=== PATIENT | male | born 1955 | race Caucasian/White ===

== ENCOUNTER 2017-11-21 14:24 | Emergency (ER) | payer MEDICAID, OTHER, SELFPAY ==
[~2017-11-21] VITALS: Ht 180.3 cm; Wt 75.8 kg
[2017-11-21 14:25] VITALS: BP 156/92
[2017-11-21] MEDS ORDERED: LIDOCAINE 1%, 20ML SQ ONE (15:30)
[2017-11-21] MEDS ORDERED: BUPIVACAINE 0.25% ONE (15:49)
[2017-11-21] MEDS ORDERED: LIDOCAINE 1%, 20ML ONE (15:49)
[2017-11-21] MEDS ORDERED: BUPIVACAINE/PF-EPI 0.25% 1:200K SQ ONE (16:00)
== END 2017-11-21 16:18 | disposition home or self-care (01) ==
LOC: ED 15:00
DX: M70.71 Other bursitis of hip, right hip (principal)
CPT/HCPCS: 99284

== ENCOUNTER 2017-11-27 16:38 | Emergency (ER) | payer MEDICAID ==
[~2017-11-27] VITALS: Ht 177.8 cm; Wt 77.0 kg
[2017-11-27 16:57] VITALS: BP 170/110
[2017-11-27] MEDS ORDERED: PINK LADY ENEMA 1,000 ML PR ONE (18:00)
[2017-11-27 18:21] LABS: BASOPHILS # (AUTO) 0.04 x10^3/uL (0-0.1); BASOPHILS % (AUTO) 0 % (0-1); EOSINOPHILS # (AUTO) 0.07 x10^3/uL (0-0.4); EOSINOPHILS % (AUTO) 1 % (1-7); LYMPHOCYTES # (AUTO) 2.07 x10^3/uL (1-3.4); LYMPHOCYTES % (AUTO) 23 % (22-44); MD NO; MEAN CORPUSCULAR HEMOGLOBIN 34.6 pg (27.5-34.5); MEAN CORPUSCULAR HGB CONC 33.8 g/dL (33.2-36.2); MEAN CORPUSCULAR VOLUME 102.5 fL (81-97); MEAN PLATELET VOLUME 8.5 fL (7.4-10.4); MONOCYTES # (AUTO) 0.73 x10^3/uL (0.2-0.8); MONOCYTES % (AUTO) 8 % (2-9); NEUTROPHILS # (AUTO) 6.18 x10^3/uL (1.8-6.8); NEUTROPHILS % (AUTO) 68 % (42-75); PLATELET COUNT 204 x10^3/uL (130-400); RED BLOOD COUNT 4.81 x10^6/uL (4.38-5.82); RED CELL DISTRIBUTION WIDTH 13.6 % (9.4-14.8)
[2017-11-27 18:33] LABS: ALANINE AMINOTRANSFERASE 48 U/L (12-78); ALBUMIN 3.2 g/dL (3.4-5.0); ANION GAP 8 mmol/L (5-15); CALCIUM 8.5 mg/dL (8.5-10.1); CHLORIDE 104 mmol/L (98-107); CREATININE 0.95 mg/dL (0.7-1.3)
[2017-11-27 18:35] LABS: ALKALINE PHOSPHATASE 137 U/L (45-117); BILIRUBIN,TOTAL 0.8 mg/dL (0.2-1.0)
[2017-11-27] MEDS ORDERED: MAGNESIUM CITRATE 300ML ORAL SOL ONE (20:59)
[2017-11-27] MEDS ORDERED: MAGNESIUM CITRATE 300ML ORAL SOL PO ONE (21:00)
== END 2017-11-27 21:28 | disposition home or self-care (01) ==
LOC: ED 19:46
DX: K59.00 Constipation, unspecified (principal); R11.0 Nausea; I10 Essential (primary) hypertension; E78.5 Hyperlipidemia, unspecified; F17.200 Nicotine dependence, unspecified, uncomplicated
CPT/HCPCS: 36415; 74022; 80053; 83690; 85025; 93005; 99285

== ENCOUNTER 2018-06-07 09:08 | Emergency (ER) | payer MEDICAID ==
[~2018-06-07] VITALS: Ht 180.3 cm; Wt 71.4 kg
[2018-06-07 09:27] VITALS: BP 161/107
[2018-06-07] MEDS ORDERED: NAPROXEN 500 MG TABLET PO ONE (09:30)
[2018-06-07] MEDS ORDERED: NAPROXEN 500 MG TABLET ONE (09:35)
== END 2018-06-07 10:02 | disposition home or self-care (01) ==
LOC: ED 09:50
DX: M75.52 Bursitis of left shoulder (principal); I10 Essential (primary) hypertension; E78.5 Hyperlipidemia, unspecified; F17.200 Nicotine dependence, unspecified, uncomplicated
CPT/HCPCS: 93005; 99283